=== PATIENT | female | born 1940 | race Caucasian/White ===

== ENCOUNTER → 2016-11-21 | Day surgery (SDC) | payer MEDICARE, MEDICAID ==
[~2016-11-21] MED LIST: ATENOLOL50 MG PO; ATIVAN0.5 MG PO; CRANBERRY200 MG PO; FLONASE NASAL S16 GM NS; GOOD SENSE ASPI81 M1 PO; LEVOTHYROXIN0.075 MG PO; LISINOPRIL1 POW PO; METOPROLOL SUCC50 M1 PO; NAPROXEN550 M1 PO; NORVASC 10MG10 MG PO; PRILOSEC 20MG20 MG PO; SIMVASTATIN20 MG PO; TENORMIN50 M1 PO
== END ==
LOC: MSO 09:00
DX: K31.1 Adult hypertrophic pyloric stenosis (principal); K25.7 Chronic gastric ulcer without hemorrhage or perforation; I10 Essential (primary) hypertension
CPT/HCPCS: 00740; A4649; J7120

== ENCOUNTER → 2017-01-16 | Day surgery (SDC) | payer MEDICARE, MEDICAID ==
[2015-12-21 22:58] VITALS: BP 136/64
== END ==
LOC: MSO 07:12
DX: Z09 Encounter for follow-up examination after completed treatment for conditions other than malignant neoplasm (principal); K29.60 Other gastritis without bleeding; K25.9 Gastric ulcer, unspecified as acute or chronic, without hemorrhage or perforation; K31.1 Adult hypertrophic pyloric stenosis; I10 Essential (primary) hypertension; G47.33 Obstructive sleep apnea (adult) (pediatric); K21.9 Gastro-esophageal reflux disease without esophagitis; R56.9 Unspecified convulsions
CPT/HCPCS: 00740; A4649; J7030; J7120

== ENCOUNTER → 2017-02-06 | Day surgery (SDC) | payer MEDICARE, MEDICAID ==
[2015-12-21 22:58] VITALS: BP 136/64
== END ==
LOC: MSO 09:12
DX: K31.1 Adult hypertrophic pyloric stenosis (principal); K25.9 Gastric ulcer, unspecified as acute or chronic, without hemorrhage or perforation
CPT/HCPCS: 00740; A4649; J7120

== ENCOUNTER → 2017-02-20 | Day surgery (SDC) | payer MEDICARE, MEDICAID ==
[2015-12-21 22:58] VITALS: BP 136/64
== END ==
LOC: MSO 08:52
DX: K31.1 Adult hypertrophic pyloric stenosis (principal); K25.9 Gastric ulcer, unspecified as acute or chronic, without hemorrhage or perforation; I10 Essential (primary) hypertension; G47.33 Obstructive sleep apnea (adult) (pediatric)
CPT/HCPCS: 00740; A4649; J7120

== ENCOUNTER 2017-04-30 17:04 | Emergency (ER) | payer MEDICARE, MEDICAID ==
[~2017-04-30] VITALS: Ht 157.5 cm; Wt 79.5 kg
[~2017-04-30 17:04] MED LIST changes: -ATIVAN0.5 MG PO; -METOPROLOL SUCC50 M1 PO; -NORVASC 10MG10 MG PO
[2017-04-30] MEDS ORDERED: NORVASC 10MG10 MG PO (17:52)
[2017-04-30] MEDS ORDERED: METOPROLOL SUCC50 M1 PO (18:25)
[2017-04-30 18:48] VITALS: BP 150/77
== END 2017-04-30 18:40 | disposition home or self-care (01) ==
LOC: ED 17:04
DX: I10 Essential (primary) hypertension (principal); R00.0 Tachycardia, unspecified; E78.5 Hyperlipidemia, unspecified; G20 Parkinson's disease; I51.9 Heart disease, unspecified

== ENCOUNTER 2017-05-02 05:14 | Emergency (ER) | payer MEDICARE, MEDICAID ==
[~2017-05-02] VITALS: Ht 157.5 cm; Wt 79.5 kg
[~2017-05-02 05:14] MED LIST changes: +METOPROLOL SUCC50 M1 PO; +NORVASC 10MG10 MG PO
[2017-05-02] MEDS ORDERED: ATIVAN0.5 MG PO (13:39)
[2017-05-02 14:17] VITALS: BP 122/68
== END 2017-05-02 13:49 | disposition home or self-care (01) ==
LOC: ED 05:14
DX: R00.2 Palpitations (principal); R00.0 Tachycardia, unspecified; F41.9 Anxiety disorder, unspecified; R07.89 Other chest pain; I25.10 Atherosclerotic heart disease of native coronary artery without angina pectoris; I10 Essential (primary) hypertension; G20 Parkinson's disease; K21.9 Gastro-esophageal reflux disease without esophagitis; E07.9 Disorder of thyroid, unspecified

== ENCOUNTER 2017-05-03 02:51 | Emergency (ER) | payer MEDICARE, MEDICAID ==
[~2017-05-03] VITALS: Ht 157.5 cm; Wt 77.3 kg
[~2017-05-03 02:51] MED LIST changes: +ATIVAN0.5 MG PO
[2017-05-03 03:53] VITALS: BP 124/75
== END 2017-05-03 03:53 | disposition home or self-care (01) ==
LOC: ED 02:51
DX: R00.2 Palpitations (principal); R00.0 Tachycardia, unspecified; F41.9 Anxiety disorder, unspecified; I25.10 Atherosclerotic heart disease of native coronary artery without angina pectoris; I10 Essential (primary) hypertension; G20 Parkinson's disease; K21.9 Gastro-esophageal reflux disease without esophagitis; E03.9 Hypothyroidism, unspecified

== ENCOUNTER → 2017-06-12 | Outpatient (CLI) | payer MEDICARE, MEDICAID | LOC: RAD 12:41 | DX: K31.1 Adult hypertrophic pyloric stenosis (principal); Z87.11 Personal history of peptic ulcer disease | CPT/HCPCS: Q9967 ==

== ENCOUNTER → 2018-08-25 | Outpatient (CLI) | payer MEDICARE, MEDICAID ==
[~2018-08-25] MED LIST changes: +LATANOPROST 2.2.5 ML OU; -LISINOPRIL1 POW PO; +MECLIZINE PO; +PANTOPRAZOLE SO40 MG PO; -PRILOSEC 20MG20 MG PO; -SIMVASTATIN20 MG PO; +SIMVASTATIN40 M1 PO; +ZESTRIL40 M1 PO
[2018-08-25 13:19] LABS: D-DIMER 0.66 mg/L FEU (0.15-0.50)
== END ==
LOC: LAB 12:29
PROVIDERS: Nurse Practitioner Family
DX: I82.402 Acute embolism and thrombosis of unspecified deep veins of left lower extremity (principal)

== ENCOUNTER 2018-08-26 21:24 | Outpatient (RCR) | payer MEDICARE, MEDICAID ==
[2018-08-25 14:21] VITALS: BP 124/66
[2018-08-25 21:36] VITALS: BP 128/61
[~2018-08-26] VITALS: Ht 157.5 cm; Wt 80.0 kg
[2018-08-26 09:12] VITALS: BP 119/65
[2018-08-26 21:30] VITALS: BP 108/58
== END 2018-08-26 22:00 | disposition home or self-care (01) ==
LOC: AMSURD 21:24
DX: I82.409 Acute embolism and thrombosis of unspecified deep veins of unspecified lower extremity (principal); R79.89 Other specified abnormal findings of blood chemistry
CPT/HCPCS: J1650

== ENCOUNTER → 2018-08-27 | Outpatient (CLI) | payer MEDICARE, MEDICAID ==
[2018-08-26 21:30] VITALS: BP 108/58
== END ==
LOC: RAD 12:55
DX: M25.562 Pain in left knee (principal)

== ENCOUNTER → 2019-09-11 | Outpatient (CLI) | payer MEDICARE, MEDICAID ==
[2018-12-10 20:34] VITALS: BP 134/77
== END ==
LOC: RAD 13:38
DX: Z86.73 Personal history of transient ischemic attack (TIA), and cerebral infarction without residual deficits (principal); Z98.890 Other specified postprocedural states

== ENCOUNTER → 2019-09-19 | Outpatient (CLI) | payer MEDICARE, MEDICAID ==
[2018-12-10 20:34] VITALS: BP 134/77
[2019-09-19 11:21] LABS: EOS # 0.6 (0.04-0.40); EOS % 5.1 % (1.0-5.0); HEMATOCRIT 40.7 % (37.0-47.0); LYMPH# 1.4 (1.50-4.00); MEAN CELL VOLUME 87 fl (78-100); MEAN CORPUSCULAR HEMOGLOBIN 28 pg (27-31); MEAN CORPUSCULAR HGB CONC 32 g/dL (33-37); MEAN PLATELET VOLUME 11.2 fl (7.4-10.4); MONO # 0.9 (0.20-0.80); PLATELET COUNT 204 K/mm3 (130-400); RED BLOOD COUNT 4.66 M/mm3 (4.10-5.30); RED CELL DISTRIBUTION WIDTH 13.7 % (11.5-14.5); WHITE BLOOD COUNT 10.9 K/mm3 (4.8-10.8)
[2019-09-19 11:31] LABS: ALBUMIN 4.1 g/dL (3.4-4.8); POTASSIUM 3.9 mmol/L (3.5-5.1); SODIUM 142 mmol/L (136-145)
[2019-09-19 11:33] LABS: CALCIUM 9.1 mg/dL (8.3-10.5)
[2019-09-19 11:34] LABS: GLUCOSE 124 mg/dL (65-105); TOTAL PROTEIN 7.6 g/dL (6.2-8.1)
[2019-09-19 11:35] LABS: CARBON DIOXIDE 25 mmol/L (23-31)
[2019-09-19 11:36] LABS: TOTAL BILIRUBIN 0.4 mg/dL (0.2-1.2)
[2019-09-19 11:39] LABS: AST-SGOT 11 U/L (5-34)
[2019-09-19 11:40] LABS: ALT/SGPT 9 U/L (0-55)
[2019-09-19 11:46] LABS: CKMB ISOENZYME 1.1 ng/mL (0.0-3.5)
[2019-09-19 12:06] LABS: TROPONIN-I < 0.03 ng/mL (<0.030)
== END ==
LOC: LAB 10:58
PROVIDERS: Nurse Practitioner Family
DX: R07.89 Other chest pain (principal)

== ENCOUNTER 2019-12-17 00:17 | Emergency (ER) | payer MEDICARE, MEDICAID ==
[~2019-12-17] VITALS: Ht 160 cm; Wt 82.7 kg
[2019-12-17] MEDS ORDERED: SINGULAIR PO (00:28)
[2019-12-17] MEDS ORDERED: CEFDINIR300 MG PO (00:29)
[2019-12-17] MEDS ORDERED: ATENOLOL50 MG PO ×2 (00:31→00:32)
[2019-12-17] MEDS ORDERED: TENORMIN50 M1 PO (00:31)
[2019-12-17 00:45] LABS: HEMATOCRIT 39.5 % (37.0-47.0); HEMOGLOBIN 12.7 g/dL (12.5-16.0); MEAN CELL VOLUME 87 fl (78-100); MEAN CORPUSCULAR HEMOGLOBIN 28 pg (27-31); MEAN CORPUSCULAR HGB CONC 32 g/dL (33-37); MEAN PLATELET VOLUME 10.9 fl (7.4-10.4); PLATELET COUNT 198 K/mm3 (130-400); RED BLOOD COUNT 4.54 M/mm3 (4.10-5.30); WHITE BLOOD COUNT 6.9 K/mm3 (4.8-10.8)
[2019-12-17 00:57] LABS: POTASSIUM 3.6 mmol/L (3.5-5.1)
[2019-12-17 00:58] LABS: CALCIUM 9.2 mg/dL (8.3-10.5)
[2019-12-17 00:59] LABS: TOTAL PROTEIN 7.2 g/dL (6.2-8.1)
[2019-12-17 01:01] LABS: TOTAL BILIRUBIN 0.2 mg/dL (0.2-1.2)
[2019-12-17 01:07] LABS: LYMPHOCYTE 36 % (20-51); MONOCYTE 11 % (3-10); NEUTROPHILS 40 % (42-75)
[2019-12-17 01:20] LABS: URINE APPEARANCE HAZY; URINE BILIRUBIN NEGATIVE (NEGATIVE); URINE COLOR YELLOW; URINE GLUCOSE NEGATIVE (NEGATIVE); URINE KETONE NEGATIVE (NEGATIVE); URINE NITRATE NEGATIVE (NEGATIVE); URINE PROTEIN(semi-quant) TRACE mg/dL (NEGATIVE); URINE UROBILINOGEN NORMAL (NORMAL)
[2019-12-17 01:21] LABS: URINE BLOOD 50 ery/uL (NEGATIVE); URINE LEUKOCYTE ESTERASE 2+ (NEGATIVE); URINE WBC 16-30 /hpf (0-3)
[2019-12-17 02:33] VITALS: BP 142/68
== END 2019-12-17 02:33 | disposition home or self-care (01) ==
LOC: ED 00:17
PROVIDERS: Nurse Practitioner
DX: N39.0 Urinary tract infection, site not specified (principal); I10 Essential (primary) hypertension; F41.9 Anxiety disorder, unspecified; K21.9 Gastro-esophageal reflux disease without esophagitis; G20 Parkinson's disease; Z79.82 Long term (current) use of aspirin; Z87.442 Personal history of urinary calculi; Z90.49 Acquired absence of other specified parts of digestive tract; Z90.710 Acquired absence of both cervix and uterus
CPT/HCPCS: Q9967

== ENCOUNTER 2021-08-29 08:53 | Emergency (ER) | payer MEDICARE, MEDICAID ==
[~2021-08-29 08:53] MED LIST changes: +CEFDINIR300 MG PO; +SINGULAIR PO
[2021-08-29] MEDS ORDERED: METHENAMINE HIPP1 GM PO (09:13)
[2021-08-29] MEDS ORDERED: SINGULAIR 110 MG/TAB PO (09:14)
[2021-08-29] MEDS ORDERED: CETIRIZINE HCL10 MG PO (09:14)
[2021-08-29] MEDS ORDERED: CORTISPORIN OTI10 M2 OT (09:14)
[2021-08-29] MEDS ORDERED: DECADRON 4MG TAB4 MG PO (10:38)
[2021-08-29 11:12] VITALS: BP 157/60
== END 2021-08-29 10:52 | disposition home or self-care (01) ==
LOC: ED 08:53
DX: H93.12 Tinnitus, left ear (principal); I10 Essential (primary) hypertension; G20 Parkinson's disease; E03.9 Hypothyroidism, unspecified; K21.9 Gastro-esophageal reflux disease without esophagitis; Z79.899 Other long term (current) drug therapy; Z79.890 Hormone replacement therapy

== ENCOUNTER → 2021-11-26 | Outpatient (CLI) | payer MEDICARE, MEDICAID ==
[~2021-11-26] MED LIST changes: +CETIRIZINE HCL10 MG PO; +CORTISPORIN OTI10 M2 OT; +DECADRON 4MG TAB4 MG PO; +METHENAMINE HIPP1 GM PO; +SINGULAIR 110 MG/TAB PO
== END ==
LOC: VAS 12:44 → RAD 13:00
DX: I08.0 Rheumatic disorders of both mitral and aortic valves (principal); I10 Essential (primary) hypertension; E78.2 Mixed hyperlipidemia

== ENCOUNTER 2022-11-10 13:24 | Emergency (ER) | payer MEDICARE, MEDICAID ==
[2022-11-10] MEDS ORDERED: ROSUVASTATIN CA20 MG PO (13:35)
[2022-11-10 15:10] VITALS: BP 123/75
== END 2022-11-10 15:05 | disposition home or self-care (01) ==
LOC: ED 13:24
DX: M50.30 Other cervical disc degeneration, unspecified cervical region (principal); E11.9 Type 2 diabetes mellitus without complications; Z28.310 Unvaccinated for COVID-19; Z79.84 Long term (current) use of oral hypoglycemic drugs

== ENCOUNTER → 2023-06-09 | Outpatient (CLI) | payer MEDICARE, MEDICAID ==
[~2023-06-09] MED LIST changes: +ROSUVASTATIN CA20 MG PO
== END ==
LOC: RAD 08:15
DX: H53.9 Unspecified visual disturbance (principal); R90.82 White matter disease, unspecified; G31.9 Degenerative disease of nervous system, unspecified
CPT/HCPCS: Q9967

== ENCOUNTER 2023-08-30 18:46 | Emergency (ER) | payer MEDICARE, MEDICAID ==
[~2023-08-30] VITALS: Wt 82.7 kg
[2023-08-30] MEDS ORDERED: VITAMIN C PUR1000 MG PO (19:16)
[2023-08-30] MEDS ORDERED: COLACE100 M1 PO (19:17)
[2023-08-30] MEDS ORDERED: NITROSTAT0.4 M1 SL (19:18)
[2023-08-30] MEDS ORDERED: ONDANSETRON HYDR4 MG PO (19:19)
[2023-08-30 19:54] LABS: BASO # 0.05 K/mm3 (0.02-0.10); EOS # 0.55 K/mm3 (0.04-0.40); EOS % 8.1 % (1.0-5.0); HEMOGLOBIN 13.3 g/dL (12.5-16.0); LYMPH# 2.22 K/mm3 (1.50-4.00); MEAN CELL VOLUME 91 fl (78-100); MEAN CORPUSCULAR HEMOGLOBIN 29 pg (27-31); MEAN CORPUSCULAR HGB CONC 32 g/dL (33-37); MEAN PLATELET VOLUME 11.4 fl (7.4-10.4); MONO # 0.55 K/mm3 (0.20-0.80); NEU # 3.44 K/mm3 (1.40-6.50); PLATELET COUNT 192 K/mm3 (130-400); RED BLOOD COUNT 4.53 M/mm3 (4.10-5.30); RED CELL DISTRIBUTION WIDTH 13.1 % (11.5-14.5); WHITE BLOOD COUNT 6.8 K/mm3 (4.8-10.8)
[2023-08-30 20:02] LABS: ALBUMIN 4.1 g/dL (3.4-4.8)
[2023-08-30 20:03] LABS: SODIUM 144 mmol/L (136-145)
[2023-08-30 20:04] LABS: CALCIUM 9.3 mg/dL (8.3-10.5)
[2023-08-30 20:05] LABS: GLUCOSE 155 mg/dL (65-105); TOTAL PROTEIN 7.4 g/dL (6.2-8.1)
[2023-08-30 20:06] LABS: CARBON DIOXIDE 21 mmol/L (23-31)
[2023-08-30 20:07] LABS: TOTAL BILIRUBIN 0.3 mg/dL (0.2-1.2)
[2023-08-30 20:10] LABS: AST-SGOT 10 U/L (5-34)
[2023-08-30 20:14] LABS: ALT/SGPT < 6 U/L (0-55)
[2023-08-30 20:21] LABS: URINE WBC 0 /hpf (0-3)
[2023-08-30 20:31] LABS: URINE APPEARANCE CLEAR; URINE BILIRUBIN NEGATIVE (NEGATIVE); URINE BLOOD 50 ery/uL (NEGATIVE); URINE COLOR YELLOW; URINE GLUCOSE NEGATIVE (NEGATIVE); URINE KETONE NEGATIVE (NEGATIVE); URINE LEUKOCYTE ESTERASE NEGATIVE (NEGATIVE); URINE NITRATE NEGATIVE (NEGATIVE); URINE PROTEIN(semi-quant) TRACE (NEGATIVE); URINE UROBILINOGEN NORMAL (NORMAL)
[2023-08-30 20:32] LABS: D-DIMER 0.7 mg/L FEU (0.15-0.50)
[2023-08-30 21:09] VITALS: BP 135/78
== END 2023-08-30 21:09 | disposition home or self-care (01) ==
LOC: ED 18:46
PROVIDERS: Nurse Practitioner
DX: Z86.73 Personal history of transient ischemic attack (TIA), and cerebral infarction without residual deficits (principal)

== ENCOUNTER → 2023-09-01 | Outpatient (CLI) | payer MEDICARE, MEDICAID ==
[~2023-09-01] MED LIST changes: +COLACE100 M1 PO; +NITROSTAT0.4 M1 SL; +ONDANSETRON HYDR4 MG PO; +VITAMIN C PUR1000 MG PO
== END ==
LOC: RAD 14:39
DX: R79.89 Other specified abnormal findings of blood chemistry (principal)
CPT/HCPCS: Q9967

== ENCOUNTER → 2024-09-26 | Outpatient (CLI) | payer MEDICARE, MEDICAID ==
[~2024-09-26] MED LIST changes: +Iohexol 300 - 100 ML VIAL IV ONE
== END ==
LOC: RAD 09:37
DX: J98.4 Other disorders of lung (principal); R91.1 Solitary pulmonary nodule

== ENCOUNTER → 2024-10-11 | Outpatient (CLI) | payer MEDICARE, MEDICAID | LOC: RAD 08:34 | DX: R53.1 Weakness (principal); R63.4 Abnormal weight loss | CPT/HCPCS: Q9967 ==

== ENCOUNTER 2024-10-28 15:54 | Emergency (ER) | payer MEDICARE, MEDICAID ==
[~2024-10-28] VITALS: Ht 160 cm; Wt 69.1 kg
[~2024-10-28 15:54] MED LIST changes: -Iohexol 300 - 100 ML VIAL IV ONE
[2024-10-28] MEDS ORDERED: NS 500 ML IV SCH ×2 (16:30→18:15)
[2024-10-28 16:34] LABS: BASO # 0.02 K/mm3 (0.02-0.10); EOS # 0.22 K/mm3 (0.04-0.40); EOS % 2.1 % (1.0-5.0); HEMATOCRIT 31.5 % (37.0-47.0); HEMOGLOBIN 10.3 g/dL (12.5-16.0); LYMPH# 1.05 K/mm3 (1.50-4.00); MEAN CELL VOLUME 84 fl (78-100); MEAN CORPUSCULAR HEMOGLOBIN 28 pg (27-31); MEAN CORPUSCULAR HGB CONC 33 g/dL (33-37); MEAN PLATELET VOLUME 10.4 fl (7.4-10.4); MONO # 0.78 K/mm3 (0.20-0.80); NEU # 8.43 K/mm3 (1.40-6.50); PLATELET COUNT 334 K/mm3 (130-400); RED BLOOD COUNT 3.75 M/mm3 (4.10-5.30); RED CELL DISTRIBUTION WIDTH 14.9 % (11.5-14.5); WHITE BLOOD COUNT 10.5 K/mm3 (4.8-10.8)
[2024-10-28 16:39] LABS: ALBUMIN 2.6 g/dL (3.4-4.8)
[2024-10-28] MEDS ORDERED: AZITHROMYCIN 250MGPK PO (16:39)
[2024-10-28] MEDS ORDERED: GEMTESA75 MG PO (16:39)
[2024-10-28 16:40] LABS: CALCIUM 8.5 mg/dL (8.3-10.5)
[2024-10-28 16:42] LABS: TOTAL PROTEIN 6.7 g/dL (6.2-8.1)
[2024-10-28 16:43] LABS: TOTAL BILIRUBIN 0.4 mg/dL (0.2-1.2)
[2024-10-28 17:17] LABS: LIPASE 16 U/L (8-78)
[2024-10-28] MEDS ORDERED: NS 100 ML IV SCH (17:47)
[2024-10-28] MEDS ORDERED: Iohexol 300 - 100 ML VIAL IV ONE (17:47)
[2024-10-28 19:01] LABS: PH-URINE 5.5 (5.0 - 8.0); URINE APPEARANCE CLEAR (CLEAR); URINE BILIRUBIN NEGATIVE (NEGATIVE); URINE BLOOD 2+ (NEGATIVE); URINE COLOR YELLOW (YELLOW); URINE GLUCOSE NEGATIVE (NEGATIVE); URINE KETONE NEGATIVE (NEGATIVE); URINE LEUKOCYTE ESTERASE NEGATIVE (NEGATIVE); URINE NITRATE NEGATIVE (NEGATIVE); URINE PROTEIN(semi-quant) 2+ (NEGATIVE)
[2024-10-28 19:43] VITALS: BP 105/55
== END 2024-10-28 19:43 | disposition home or self-care (01) ==
LOC: ED 15:54
PROVIDERS: Physician Assistant
DX: I95.9 Hypotension, unspecified (principal); E86.1 Hypovolemia; E88.09 Other disorders of plasma-protein metabolism, not elsewhere classified; E03.9 Hypothyroidism, unspecified; K82.8 Other specified diseases of gallbladder; R74.01 Elevation of levels of liver transaminase levels; Z79.82 Long term (current) use of aspirin
CPT/HCPCS: J7040; Q9967